=== PATIENT | female | born 1945 | race African-American/Black ===

== ENCOUNTER 2017-11-21 12:00 | Inpatient (IN) | END 2017-12-05 17:25 | disposition home health service (06) | DRG 841 ==

== ENCOUNTER → 2018-02-03 | Outpatient (CLI) | END | disposition home or self-care (01) ==

== ENCOUNTER 2018-04-07 08:36 | Day surgery (SDC) | END 2018-04-07 13:15 | disposition home or self-care (01) ==

== ENCOUNTER 2018-04-08 10:06 | Emergency (ER) | END 2018-04-08 18:26 | disposition home or self-care (01) ==

== ENCOUNTER 2018-09-01 07:50 | Observation (INO) | payer OTHER ==
[~2018-09-01] VITALS: Ht 162.6 cm; Wt 82.9 kg
[2018-09-01] VITALS (20 sets, daily range): BP systolic 95–144; BP diastolic 55–75; PULSE 77–96; RESP 12–28; Ht 162.6 cm; Wt 82.9 kg
[~2018-09-01 07:50] MED LIST: ALLO300T2 PO; DIAZEPAM 5 MG TAB PO ONE; DIPHENHYDRAMINE 50 MG CAP PO ONE; FAMO20TA18 PO; FAMOTIDINE 20 MG TAB PO ONE; HYDR-3601 PO; HYG25 PO; LOSA50TA2 PO; METO-429 PO; ONDA4TAB13 PO; SOD CHLORIDE 0.45% 1,000 ML IV SCH
[2018-09-01] MEDS ORDERED: OLME1TAB81 PO (08:13)
[2018-09-01] MEDS ORDERED: IODIXANOL LOCM 100 ML BTL ONE ×3 (08:27→10:18)
[2018-09-01] MEDS ORDERED: VERAPAMIL 5 MG INJ ONE (08:27)
[2018-09-01] MEDS ORDERED: FENTAnyl 50 MCG/ML VIAL ONE (08:27)
[2018-09-01] MEDS ORDERED: MIDAZOLAM 1 MG/ML 2 ML INJ ONE (08:27)
[2018-09-01] MEDS ORDERED: NITROGLYCERIN (IC) 100 MCG/ML INJ ONE (08:27)
[2018-09-01] MEDS ORDERED: HEPARIN 1000 UNITS/ML 10 ML INJ ONE (08:27)
[2018-09-01] MEDS ORDERED: LIDOCAINE 1% (MDV) 20 ML INJ ONE (08:27)
--- NOTE | 2018-09-01 10:36 | SIPON ---
Date/Time of Note Date/Time of Note DATE: 09/01/18 TIME: 10:34 Operative Report Preoperative Diagnosis 1.chest pain 2.abnl mpi Postoperative Diagnosis 1.nonobstructive cad Operation/Procedure Performed 1.[facility] Surgeon see signature line district administrative assistant 1.Kevin Anesthesia: moderate sedation Estimated blood loss: minimal Transfusion Required none Specimen none Grafts/Implants none Complications none MARCO PALOMARES Sep 01, 2018 10:36
[2018-09-01] MEDS ORDERED: ONDANSETRON 4 MG INJ ONE (10:55)
[2018-09-01] MEDS ORDERED: ONDANSETRON 4 MG INJ IV PRN (11:00)
[2018-09-01] MEDS ORDERED: morphine 2 MG INJ IV PRN (11:00)
[2018-09-01] MEDS ORDERED: ACETAMINOPHEN 325 MG TAB PO PRN (11:00)
[2018-09-01] MEDS ORDERED: AL HYDROX/MG HYDROX/SIMETH 30 ML CUP PO PRN (11:00)
[2018-09-01] MEDS: SOD CHLORIDE 0.9% 1,000 ML IV SCH ×2 (11:05→11:21)
--- NOTE | 2018-09-01 12:27 | CARRPT ---
DATE OF PROCEDURE: 09/01/2018 TYPE OF PROCEDURES: 1. Left heart catheterization. 2. Coronary angiography. 3. Measurement of left end diastolic pressure. 4. Moderate conscious sedation. ATTENDING PHYSICIAN: Marco Newsome MD REFERRING PHYSICIAN: Self referred. HISTORY INDICATION: Chest pain refractory to medical therapy, positive stress test findings. TYPE OF ANESTHESIA: Conscious and local. BRIEF HISTORY AND HOSPITAL COURSE: Ms. Varela a 72-year-old female with history of hypertension and dyslipidemia, who initially complained of substernal chest pain. The patient subsequently underwent cardiac stress test revealing positive ischemia. The patient was placed on ascending medical therapy, but continued to have chest pain; therefore was brought to cardiac logging rafter laborer in order to assess the possibility of significant obstructive coronary artery disease lending to symptoms of chest pain and subsequent positive stress test findings. DESCRIPTION OF PROCEDURE: After informed consent was obtained, the patient was brought to the [facility] cardiac catheterization lab where her right radial area was prepped and draped in usual sterile fashion. A 2% lidocaine was infiltrated to the right radial area in order to achieve adequate anesthesia. Using the modified Seldinger technique, the radial artery was cannulated and a 6-Korean arterial sheath was placed. A 6-Korean JL3.5 catheter was used to cannulate the left main coronary ostium. With contrast injection, multiple views of left coronary system were obtained. A JL3.5 was removed over a guidewire and JR4 was used to cannulate the right coronary arterial ostium unsuccessfully. This was exchanged for a Richardson Right unsuccessfully which we were able to use to successfully cannulate the right coronary ostium. With contrast injection, multiple views of the right coronary system obtained. This guide catheter became tewisted and had to be externalized and removed from the body, Subsequently, the patient's sheath was removed and TR band was applied. This completed the procedure. FINDINGS: Coronary angiography: Left main is 4 mm, no significant focal stenosis. Circumflex proximally is 3.5 mm vessel, very tortuous, free from focal stenoses. Circ continuation AV groove is a 2.5 mm vessel, tortuous, free from significant focal stenoses. LAD proximally is a 3.5 mm vessel and has mild luminal irregularities of 10% to 20%. Remainder of the LAD thereafter is free from significant focal stenoses. There are mid branching diagonals, 2 mm vessels with no significant focal stenoses. The right coronary artery is a nondominant vessel, 3 mm, has a posterior and superior takeoff and has no significant focal stenoses. Measurement of left ventricular end diastolic pressure of 8. No significant aortic stenosis by gradient. TOTAL CONTRAST: 260. TOTAL FLUOROSCOPY TIME: 30.7. IMPRESSION: 1. Very mild nonobstructive coronary artery disease. 2. Low normal left heart filling pressures. 3. No significant aortic stenosis by gradient. RECOMMENDATIONS: In light of procedure findings at this time, we would: 1. Maximize medical management. 2. Aggressive risk factor reduction. 3. The patient will have an arterial ultrasound on the right arm as post discontinuation of the sheath. The patient did not have significant radial bleeding and decrease radial pulse, but has excellent waveforms with excellent ulnar blood flow. Dictated By: MARCO PULIDO/RAFAEL Conf#: [id number] DID#: [id number] MTDD
--- NOTE | 2018-09-01 12:58 | RADRPT ---
Vent Rate: 87 bpm RR Interval: 0 msec MD Interval: 174 msec QRS Duration: 68 msec QT Interval: 370 msec QTC Interval: 445 msec P-R-T [place]: 34 - 18 - 10 degrees Normal sinus rhythm Nonspecific T wave abnormality Abnormal ECG Electronically Signed By: Castillo Bronson [id number]
[2018-09-01] MEDS ORDERED: SOD CHLORIDE 0.9% 100 ML ONE (13:59)
[2018-09-01] MEDS ORDERED: IOHEXOL 100 ML ONE (13:59)
[2018-09-01] MEDS ORDERED: IOHEXOL 350MG/ML 50 ML BTL ONE (13:59)
[2018-09-01] MEDS ORDERED: HEPARIN 1000 UNITS/ML 10 ML INJ IV ONE (14:00)
--- NOTE | 2018-09-01 14:48 | HP ---
Date/Time of Note Date/Time of Note DATE: 09/01/18 TIME: 14:48 Assessment/Plan VTE Prophylaxis Risk score (from [facility]0 risk: 4 SCD applied (from [facility] [place]): No SCD contraindicated: other Pharmacological prophylaxis: heparin Lines/Catheters IV Catheter Type (from [facility]): Peripheral IV Assessment/Plan Hospital Course Assessment and plan: 72-year-old female hypertension, high cholesterol, non- Hodgkin's lymphoma, status post left heart catheter earlier today after positive cardiac stress test recently, now with possible radial artery occlusion. #Status post left heart cath: Occurred earlier today - again follow-up post procedure recommendations, continue current cardiac medication as ordered by cardiology team - Regarding the possible radial artery abnormalities, follow-up CT angios results and continue heparin drip as ordered by them #Hypertension: Blood pressure is presently stable -Continue current medications #High cholesterol: Monitor for now #Non-Hodgkin's lymphoma: Patient apparently finished her last chemotherapy in March 2018 -Monitor for now Result Diagram: 09/01/18 0810 09/01/18 0810 Results 24hrs Laboratory Tests Test 09/01/18 08:10 White Blood Count 2.1 #L Red Blood Count 4.07 #L Hemoglobin 11.3 #L Hematocrit 34.7 #L Mean Corpuscular Volume 85.3 Mean Corpuscular Hemoglobin 27.8 L Mean Corpuscular Hemoglobin Concent 32.6 Red Cell Distribution Width 14.7 H Platelet Count 174 Mean Platelet Volume 10.8 H Immature Granulocytes % 0.500 H Neutrophils % 37.0 L Lymphocytes % 34.6 Monocytes % 21.2 H Eosinophils % 5.3 Basophils % 1.4 Nucleated Red Blood Cells % 0.0 Immature Granulocytes # 0.010 Neutrophils # 0.8 L Lymphocytes # 0.7 L Monocytes # 0.4 Eosinophils # 0.1 Basophils # 0.0 Nucleated Red Blood Cells # 0.0 CBC Results Faxed/Phoned 1 *H Prothrombin Time 12.6 Prothrombin Time Ratio 1.0 INR International Normalized Ratio 0.93 Activated Partial Thromboplast Time 21.8 L Sodium Level 140 Potassium Level 3.5 Chloride Level 103 Carbon Dioxide Level 28 Anion Gap 9 Blood Urea Nitrogen 22 H Creatinine 0.90 Est Glomerular Filtrat Rate mL/min Glucose Level 110 Calcium Level 9.7 Total Bilirubin 0.8 Direct Bilirubin 0.00 Indirect Bilirubin 0.8 Aspartate Amino Transf (AST/SGOT) 26 Alanine Aminotransferase (ALT/SGPT) 21 Alkaline Phosphatase 111 Total Protein 7.0 Albumin 4.2 Globulin 2.80 Albumin/Globulin Ratio 1.50 Triglycerides Level 105 Cholesterol Level 219 H LDL Cholesterol, Calculated 141 HDL Cholesterol 57 Cholesterol/HDL Ratio 3.8 HPI/ROS Admit Date/Time Admit Date/Time Hx of Present Illness 72-year-old female past medical history of hypertension, high cholesterol, non- Hodgkin's lymphoma, recent shingles, who was brought in for elective heart catheter earlier today. Per patient apparently she had had a positive stress test recently, and her voice data communications engineer wanted her to have an angiogram performed. This was performed earlier today. Afterwards there was concern of radial artery occlusion. Patient presently has been started on heparin drip, and CT angio of the upper extremity has been performed results are still pending. Presently patient denies any chest pain or shortness of breath, nausea vomiting, fever chills, diarrhea constipation, upper or lower GI bleeding. PMH/Family/Social Past Medical History Medications Current Medications Sodium Chloride 1,000 ml @ 0 mls/hr Q0M IV ; Start 09/01/18 at 07:00; Stop 09/01/18 at 16:00 Influenza Virus Vaccine Quadrival (Fluzone) 0.5 ml ONCE ONCE IM* ; Start 09/02/18 at 10:00; Stop 09/02/18 at 10:01 Acetaminophen (Tylenol Tab) 650 mg Q4H PRN PO mild pain; Start 09/01/18 at 11:00 Morphine Sulfate (morphine) 2 mg Q2H PRN IV moderate to severe pain; Start 09/01/18 at 11:00 Al Hydrox/Mg Hydrox/Simethicone (Mag-Al Plus) 30 ml Q4H PRN PO GASTROINTESTINAL UPSET; Start 09/01/18 at 11:00 Ondansetron HCl (Zofran Inj) 4 mg Q4H PRN IV NAUSEA AND/OR VOMITING; Start 09/01/18 at 11:00 Sodium Chloride 1,000 ml @ 75 mls/hr [id number] IV Last administered on 09/01/18at 11:21; Admin Dose 75 MLS/HR; Start 09/01/18 at 10:36; Stop 09/01/18 at 15:35 Heparin Sodium (Porcine) 250 ml @ 15 mls/hr PER PROTOCOL IV ; Start 09/01/18 at 14:00 Coded Allergies: Penicillins (Verified Allergy, Mild, RASH, 09/01/18) lorazepam (Verified Allergy, Unknown, HALLUCINATIONS, 09/01/18) Family History Significant Family History: no pertinent family hx Social History Alcohol Use: none Smoking Status: Never smoker Drug Use: none Exam/Review of Systems Vital Signs Vitals Vital Signs Date Temp Pulse Resp B/P (MAP) Pulse Ox O2 O2 Flow FiO2 Time Delivery Rate 09/01/18 84 21 127/71 96 Room Air 13:09 (89) 09/01/18 98.0 11:04 Exam Exam GENERAL: Lying in bed, in no acute distress HEENT: Moist mucous membranes, pink conjunctiva, pupils equal round reactive to light, extraocular muscles intact NEURO: No focal deficits CARDIAC: Regular rate and rhythm, no murmurs rubs or gallops LUNGS: Clear bilaterally no wheezing crackles or stridor ABDOMEN: Soft nontender, no guarding, no rigidity, no rebound, no psoas sign no obturator sign. Normoactive bowel sounds SKIN: Warm and dry to touch, no abrasions EXTREMITIES: No lower extremity edema bilaterally JOSE LIRA Sep 01, 2018 14:48
[2018-09-01] MEDS: HEPARIN 25000 UNITS/250 ML 250 ML IV SCH (14:57)
[2018-09-02] VITALS (7 sets, daily range): BP systolic 130–154; BP diastolic 6–88; PULSE 88–95; RESP 17–20
[2018-09-02] MEDS: SOD CHLORIDE 0.9% 1,000 ML IV SCH (03:54)
[2018-09-02] MEDS: HEPARIN 25000 UNITS/250 ML 250 ML IV SCH (06:26)
--- NOTE | 2018-09-02 13:21 | CONS ---
Date/Time of Note Date/Time of Note DATE: 09/02/18 TIME: 13:18 Assessment/Plan Assessment/Plan Assessment/Plan 1. Status post left heart cath: with report of possible radial artery occlusion - per exam now, 2+ radial pulse - will stop heparin gtt -per DR. Newsome advise, Jeison 4 weeks - she will follow w bree Newsome next week. 2. Hypertension: Blood pressure is presently stable -Continue current medications - BP on high side , Rx now 3. High cholesterol: Monitor for now - treatred 4. No-Hodgkin's lymphoma: Patient apparently finished her last chemotherapy in March 2018 -defer to hematology 5. CAD - s/ p LHC - o obstructive disease noted Result Diagram: 09/01/18204409/01/18 0810 Results 24hrs Laboratory Tests Test 09/01/18 20:45 09/02/18 01:06 09/02/18 03:43 09/02/18 12:33 White Blood Count 2.0 L Red Blood Count 3.64 L Hemoglobin 10.1 L Hematocrit 31.2 L Mean Corpuscular 85.7 Volume Mean Corpuscular 27.7 L Hemoglobin Mean Corpuscular 32.4 Hemoglobin Concent Red Cell 14.7 H Distribution Width Platelet Count 153 Mean Platelet Volume 10.4 Immature 0.000 L Granulocytes % Neutrophils % Segmented 44 Neutrophils % (Manual) Lymphocytes % Lymphocytes % 31 (Manual) Reactive Lymphocytes 2 H % (Manual) Monocytes % Monocytes % (Manual) 15 H Eosinophils % Eosinophils % 6 (Manual) Basophils % Basophils % (Manual) 2 Nucleated Red Blood 0.0 Cells % Immature 0.000 Granulocytes # Neutrophils # Lymphocytes (Manual) 0.6 L Lymphocytes # Reactive Lymphocytes 0.0 # Monocytes # Monocytes # (Manual) 0.3 Eosinophils # Basophils # Basophils # (Manual) 0.0 Nucleated Red Blood Cells # Platelet Estimate NORMAL Polychromasia 1+ Anisocytosis 1+ Microcytosis 1+ Prothrombin Time 14.1 Prothrombin Time 1.1 Ratio INR International 1.08 Normalized Ratio Activated > 180.0 *H 116.6 *H 53.0 H 99.9 *H Partial Thromboplast Time Consultation Date/Type/Reason Admit Date/Time Sep 01, 2018 at 13:46 Initial Consult Date 24 HR Interval Summary Free Text/Dictation NO acute events - no CP - radial pulse returned ROS: No fever, no chills, no nausea, no vomiting, no diarrhea/constipation No recent weight changes No chest pain, no PND, no orthopnea No dizziness, blurred vision No thirst, no heat or cold intolerance Exam/Review of Systems Vital Signs Vitals Vital Signs Date Temp Pulse Resp B/P (MAP) Pulse Ox O2 O2 Flow FiO2 Time Delivery Rate 09/02/18 98.3 88 20 146/88 98 Room Air 11:45 (107) Intake and Output 09/01/18 09/01/18 09/02/18 1515:00 23:00 07:00 IntakeIntake Total 525 ml 390 ml BalanceBalance 525 ml 390 ml Exam General: WN/WD/NAD, AOx 3 HEENT: Unicetric/atraumatic/EOMI (follow commands) NECK: JVD elevated, no thyromegaly Lymph: no lymphadenopathy HEART: regular with no S3, II/ systolic murmur at apex LUNGS: Coarse sounds ABD: soft, NT, ND, +BS : Intact Neuro: non focal SKIN: chronic changes EXT: trace edema Medications Medications Current Medications Acetaminophen (Tylenol Tab) 650 mg Q4H PRN PO mild pain Last administered on 12:09; Admin Dose 650 MG; Start 09/01/18 at 11:00 Morphine Sulfate (morphine) 2 mg Q2H PRN IV moderate to severe pain; Start 09/01/18 at 11:00 Al Hydrox/Mg Hydrox/Simethicone (Mag-Al Plus) 30 ml Q4H PRN PO GASTROINTESTINAL UPSET; Start 09/01/18 at 11:00 Ondansetron HCl (Zofran Inj) 4 mg Q4H PRN IV NAUSEA AND/OR VOMITING; Start 09/01/18 at 11:00 Sodium Chloride 1,000 ml @ 75 mls/hr [id number] IV Last administered on 09/02/18 03:54; Admin Dose 75 MLS/HR; Start 09/01/18 at 10:36 Heparin Sodium (Porcine) 250 ml @ 15 mls/hr PER PROTOCOL IV Last administered on 09/02/18 06:26; Admin Dose 11.5 MLS/HR; Start 09/01/18 at 14:00 MARIO ACOSTA MD Sep 02, 2018 13:21
--- NOTE | 2018-09-02 13:46 | PDOCDIS ---
Discharge Instructions CONDITION [id number] Patient Condition: [id number] Stable HOME CARE INSTRUCTIONS: [id number] Diet Instructions: [id number] Low Fat /Cholesterol ACTIVITY: [id number] Activity Restrictions: Jzoyl2r Slowly Increase Activity Rest between Activity Avoid heavy lifting FOLLOW UP/APPOINTMENTS Follow-up Plan Please take your medications as prescribed. Please see your doctor in the clinic in the next 1 week. JOSE LIRA. Sep 02, 2018 13:46
--- NOTE | 2018-09-02 14:02 | DS ---
Date/Time of Note Date/Time of Note DATE: 09/02/18 TIME: 13:47 Discharge Summary Admission/Discharge Info Admit Date/Time Sep 01, 2018 at 13:46 Discharge Date/Time Discharge Diagnosis #Status post left heart cath: Concern of radial arterial bleeding and occlusion after procedure, status post imaging studies of the bilateral radial arteries with occlusion found, now on anticoagulation. #Hypertension: Blood pressure is presently stable #High cholesterol #Non-Hodgkin's lymphoma: Patient apparently finished her last chemotherapy in March 2018 Patient Condition: Stable Procedures 1. Left heart catheterization: IMPRESSION: 1. Very mild nonobstructive coronary artery disease. 2. Low normal left heart filling pressures. 3. No significant aortic stenosis by gradient. 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 Right interosseous and ulnar arteries appear patent with supply to the hand. Left upper extremity with limited evaluation of the arteries due to venous contrast bolus injection, however visualized arteries appear grossly patent as described. Multiple hypodense bilateral thyroid nodules, which may represent a multinodular thyroid gland. Largest is noted in the right thyroid lobe measuring 14 mm. Recommend further evaluation with thyroid ultrasound. Hx of Present Illness 72-year-old female past medical history of hypertension, high cholesterol, non- Hodgkin's lymphoma, recent shingles, who was brought in for elective heart catheter earlier today. Per patient apparently she had had a positive stress test recently, and her rig manager wanted her to have an angiogram performed. This was performed earlier today. Afterwards there was concern of radial artery occlusion. Patient presently has been started on heparin drip, and CT angio of the upper extremity has been performed results are still pending. Presently patient denies any chest pain or shortness of breath, nausea vomiting, fever chills, diarrhea constipation, upper or lower GI bleeding. Hospital Course So patient was admitted to telemetry floor after the heart catheterization. Because of concerns of radial artery occlusion and because of the bleeding, patient underwent imaging studies which did find a thrombosis in the radial artery. Patient initially was placed on heparin drip. There were no further signs of bleeding. She denied any chest pain. Over the course of the hospital stay she was able to ambulate, tolerated p.o. diet. Per discussion with change management consultant team cardiology, she was switched from heparin drip to p.o. Eliquis which she will take now as an outpatient. Of note there was findings of multiple hypodense bilateral thyroid nodules, which may represent a multinodular thyroid gland. Largest is noted in the right thyroid lobe measuring 14 mm. Recommend further evaluation with thyroid ultrasound. This was discussed with endocrinology team over the phone, who recommended outpatient workup. Patient has no current abnormalities noted regarding her thyroid. After getting clearance from change management consultant team patient will be discharged home today in improved condition. She will take Eliquis as mentioned follow-up cardiology team and endocrinology team as an outpatient. See below for full list of discharge medications. Home Meds Reported Medications Olmesartan/Hydrochlorothiazide (Olmesartan-Hctz 20-12.5 mg Tab) 1 Each Tablet, 1 TAB PO DAILY 09/01/18 Discontinued Reported Medications Ondansetron Hcl* (Zofran*) 4 Mg Tab, 4 MG PO NEEDED PRN for NAUSEA AND OR VOMITING, TAB 04/08/18 Discontinued Scripts Famotidine* (Famotidine*) 20 Mg Tablet, 20 MG PO DAILY, #30 TAB Prov:REGCHEN REYES 12/05/17 Hydrocodone Bit-Acetaminophen (Hydrocodone Bit-APAP) 5-325MG Tablet, 1 TAB PO Q4H PRN for PAIN, #30 TAB Prov:REGIDORCHEN 12/05/17 Metoprolol Tartrate* (Lopressor*) 50 Mg Tab, 50 MG PO BID, #60 TAB Prov:REGIDORCHEN 12/05/17 Losartan Potassium* (Cozaar*) 50 Mg Tablet, 50 MG PO BID, #60 TAB Prov:REGIDORCHEN 12/05/17 Chlorthalidone* (Hygroton*) 25 Mg Tab, 25 MG PO DAILY@06, #30 TAB Prov:REGIDORCHEN 12/05/17 Allopurinol* (Allopurinol*) 300 Mg Tablet, 300 MG PO DAILY, #30 TAB Prov:CHEN ODOM 12/05/17 Follow-up Plan Please take your medications as prescribed. Please see your doctor in the clinic in the next 1 week. Primary Care Provider Not On Staff Doctor Time spent on discharge: > 30 minutes Pending Labs Laboratory Tests Test 09/01/18 20:45 09/02/18 01:06 09/02/18 03:43 1/19/19 12:33 White Blood 2.0 Count 10^3/ul (4.8-10 .8) Red Blood 3.64 Count 10^6/ul (4.20-5 .40) Hemoglobin 10.1 g/dl (12.0-16.0 ) Hematocrit 31.2 % (37.0-47.0) Mean 85.7 Corpuscular fl (82.0-101.0) Volume Mean 27.7 Corpuscular pg (29.0-33.0) Hemoglobin Mean 32.4 Corpuscular g/dl (32.0-37.0 Hemoglobin Conc ) ent Red Cell 14.7 Distribution % (11.5-14.5) Width Platelet Count 153 10^3/UL (140-41 5) Mean Platelet 10.4 Volume fl (7.4-10.4) Immature 0.000 Granulocytes % % (0.001-0.429) Neutrophils % % (39.0-77.0) Segmented 44 % (39-77) Neutrophils % (Manual) Lymphocytes % % (15.0-51.0) Lymphocytes % 31 % (15-51) (Manual) Reactive 2 % (0-0) Lymphocytes % (Manual) Monocytes % % (0.0-11.0) Monocytes % 15 % (0-11) (Manual) Eosinophils % % (0.0-7.0) Eosinophils % 6 % (0-7) (Manual) Basophils % % (0.0-2.0) Basophils % 2 % (0-2) (Manual) Nucleated Red 0.0 Blood Cells % /100WBC (0.0-0. 0) Immature 0.000 Granulocytes # 10^3/ul (0.0-0. 031) Neutrophils # 10^3/ul (1.6-7. 5) Lymphocytes 0.6 (Manual) 10^3/ul (0.8-2. 9) Lymphocytes # 10^3/ul (0.8-2. 9) Reactive 0.0 Lymphocytes # 10^3/ul (0.0-0. 0) Monocytes # 10^3/ul (0.3-0. 9) Monocytes # 0.3 (Manual) 10^3/ul (0.3-0. 9) Eosinophils # 10^3/ul (0.0-0. 5) Basophils # 10^3/ul (0.0-0. 1) Basophils # 0.0 (Manual) 10^3/ul (0.0-0. 0) Nucleated Red 10^3/ul (0.0-0. Blood Cells # 0) Platelet NORMAL Estimate Polychromasia 1+ (0-0) Anisocytosis 1+ (0-0) Microcytosis 1+ (0-0) Prothrombin 14.1 Time Sec (11.9-14.9) Prothrombin 1.1 Time Ratio INR 1.08 International Normalized Rati o Activated > 180.0 116.6 53.0 99.9 Partial Thrombo Sec (23.0-35.0) Sec (23.0-35.0 Sec (23.0-35.0 Sec (23.0-35.0 plast Time ) ) ) JOSE LIRA. Sep 02, 2018 13:58
== END 2018-09-02 15:30 | disposition home or self-care (01) ==
LOC: SDS 07:50 → REC 13:46 → TEL 16:51
PROVIDERS: ADMIT Internal Medicine; ATTEND Hospitalist
DX: I25.10 Atherosclerotic heart disease of native coronary artery without angina pectoris (principal); I10 Essential (primary) hypertension; E78.00 Pure hypercholesterolemia, unspecified; C85.90 Non-Hodgkin lymphoma, unspecified, unspecified site; Z23 Encounter for immunization
CPT/HCPCS: 71045; 73206; 80053; 80061; 85025; 85610; 85730; 90686; 93005; 93458; 93923; C1887; G0378; J1644; J2250; J2405; J3010; J7030; Q9967; 99217